=== PATIENT | male | born 1955 | race Caucasian/White ===

== ENCOUNTER 2018-02-22 17:18 | Inpatient (IN) | payer OTHER ==
[~2018-02-22] VITALS: Ht 170.2 cm; Wt 74.8 kg
[~2018-02-22 17:18] MED LIST: BACTRIM DS TAB1 EACH PO; HYDROCODONE-AP1 EAC6 PO; IBUPROFEN 800800 M1 PO
[2018-02-22 17:22] VITALS: BP 212/119
[2018-02-22 17:42] LABS: POC CA IONIZED 5.1 mg/dL (4.5-5.3); POC CREATININE 1.2 mg/dL (0.6-1.3); POC HEMOGLOBIN 12.9 g/dL (12.0-17.0); POC POTASSIUM 3.9 mmol/L (3.5-4.9)
[2018-02-22 17:47] LABS: ABSOLUTE BASOPHILS 0.2 thou/uL (0.0-0.2); ABSOLUTE EOSINOPHILS 0.4 thou/uL (0.0-0.7); ABSOLUTE LYMPHOCYTES 2.3 thou/uL (0.8-5.3); ABSOLUTE MONOCYTES 1.1 thou/uL (0.0-1.2); ABSOLUTE NEUTROPHILS 7.2 thou/uL (1.6-8.1); BASOPHILS 1.4 %; EOSINOPHILS 3.4 %; HEMATOCRIT 37.7 % (42.0-52.0); HEMOGLOBIN 11.9 gm/dL (14.0-18.0); LYMPHOCYTES 20.6 %; MCH 23.5 pg (26.0-34.0); MCHC 31.7 g/dL (28.0-37.0); MCV 74.2 fL (80.0-100.0); MONOCYTES 10.3 %; MPV 7.5 fl. (7.2-11.1); NUCLEATED RBCS 0 /100WBC; PLATELET COUNT* 337 thou/uL (150-400); POLYS 64.3 %; RBC 5.09 mil/uL (4.50-6.00); RDW-CV 18.8 % (10.5-14.5); WBC 11.2 thou/uL (4.0-11.0)
[2018-02-22 17:51] LABS: INR 1.1
[2018-02-22 18:42] LABS: CHLORIDE 103 mmol/L (98-107); SODIUM 137 mmol/L (136-145)
[2018-02-22 18:48] LABS: ANION GAP 10 mmol/L (7-16); BUN 25 mg/dL (7-18); CALCIUM 9.5 mg/dL (8.5-10.1); CO2 24 mmol/L (21-32); CREATININE 1.2 mg/dL (0.6-1.3); GLUCOSE 130 mg/dL (70-99)
[2018-02-22 18:59] LABS: ALBUMIN 3.5 g/dL (3.4-5.0); ALKALINE PHOSPHATASE 52 U/L (46-116); NT-PRO BRAIN NAT PEPTIDE 567 pg/mL (<300); SGOT 40 U/L (15-37); SGPT 27 U/L (30-65); TOTAL BILIRUBIN 0.3 mg/dL (<0.1-1.0); TOTAL PROTEIN 7.8 g/dL (6.4-8.2); TROPONIN-I LEVEL <0.06 ng/mL (<0.06)
[2018-02-22 19:13] LABS: URINE BILIRUBIN NEGATIVE (Negative); URINE BLOOD TRACE (Negative); URINE CLARITY CLEAR; URINE COLOR YELLOW; URINE GLUCOSE-RANDOM NEGATIVE (Negative); URINE KETONES NEGATIVE (Negative); URINE LEUKOCYTES NEGATIVE (Negative); URINE NITRITE NEGATIVE (Negative); URINE PROTEIN NEGATIVE (Negative); URINE SPECIFIC GRAVITY 1.025 (1.005-1.030); URINE UROBILINOGEN 0.2 E.U./dl (0.2-1.0)
[2018-02-22 19:20] LABS: AMP/METHAMP POSITIVE (Negative); BARBITURATES Negative (Negative); BENZODIAZEPINES Negative (Negative); COCAINE Negative (Negative); METHADONE Negative (Negative); OPIATES Negative (Negative); PCP Negative (Negative); THC Negative (Negative)
[2018-02-22 20:33] VITALS: BP 179/105
[2018-02-22 20:54] VITALS: BP 168/97
[2018-02-23] VITALS: BP 131/69
[2018-02-23 04:18] VITALS: BP 154/100
[2018-02-23 07:52] VITALS: BP 145/77
--- NOTE | 2018-02-23 10:33 | EKG ---
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 : 1955 Requested By: Abdulkadir Ball Order Number: [id number] MD: Loc Rubio Measurements Intervals [place] Rate: 101 P: 52 ME: 141 QRS: -18 QRSD: 94 T: 48 QT: 353 QTc: 458 Interpretive Statements Sinus tachycardia Atrial premature complexes Borderline left axis deviation RSR' in V1 or V2, probably normal variant Baseline wander in lead(s) V5 No previous ECG available for comparison Electronically Signed On 02-23-2018 10:33:24 CDT by Loc Rubio [email or web address] <ELECTRONICALLY SIGNED> By: Loc Rubio MD, FAC 02/23/18 1033 1721 1721 Loc Rubio MD, [facility] /EPI
[2018-02-23 11:47] VITALS: BP 166/98
--- NOTE | 2018-02-23 14:49 | 2DMMODE ---
[place] [address] 2 D/M-MODE ECHOCARDIOGRAM Name: ELIZABETH LIZAMA Room: [address] IN [facility]#: [id number] Admission: 02/22/18 Attend Phys: Raghavendra Hunt Discharge: Date of : 53 Date of Service: 02/23/18 1449 Report #: [id number] THIS REPORT FOR: //name// APPROVED REPORT Study performed: 02/23/2018 13:29:15 EXAM: Comprehensive 2D, Doppler, and color-flow Echocardiogram Patient Location: In-Patient Room #: [facility] Status: routine BSA: 1.86 HR: 83 bpm BP: 166/98 mmHg Rhythm: NSR Other Information Study Quality: Good Indications Hypertension/HDD 2D Dimensions LVEF(%): 58.14 (>50%) IVSd: 13.06 (7-11mm) LVOT Diam: 19.23 (18-24mm) LVDd: 47.16 mm PWd: 12.73 (7-11mm) Ascending Ao: 37.18 (22-36mm) LVDs: 32.71 (25-40mm) Aortic Root: 33.33 mm [place]'s LVEF: 58.14 % Volumes Left Atrial Volume (Systole) LA ESV Index: 24.50 mL/m2 Aortic Valve AoV Peak Baljinder.: 1.75 m/s AO Peak Gr.: 12.22 mmHg LVOT Max P.89 mmHg AO Mean Gr.: 6.20 mmHg LVOT Mean P.03 mmHg LVOT Max V: 1.31 m/s AO V2 VTI: 28.78 cm LVOT Mean V: 0.78 m/s SHAHRAM (VTI): 2.59 cm2 LVOT V1 VTI: 25.63 cm Mitral Valve E/A Ratio: 0.64 [place] [address] 2 D/M-MODE ECHOCARDIOGRAM Name: ELIZABETH LIZAMA Room: [address] IN .R.#: [id number] Admission: 02/22/18 Attend Phys: Raghavendra Hunt Discharge: Date of : 53 Date of Service: 02/23/18 1449 Report #: [id number] MV Decel. Time: 234.13 ms MV E Max Baljinder.: 0.57 m/s MV PHT: 67.90 ms MVA (PHT): 3.24 cm2 TDI E/Lateral E': 5.70 E/Medial E': 6.33 Medial E' Baljinder.: 0.09 m/s Lateral E' Baljinder.: 0.10 m/s Pulmonary Valve PV Peak Baljinder.: 0.90 m/s PV Peak Gr.: 3.25 mmHg Left Ventricle The left ventricle is normal size. There is normal LV segmental wall motion. Mild concentric left ventricular hypertrophy. Left ventricular systolic function is normal. The left ventricular ejection fraction is within the normal range. LVEF is 50-55%. Grade I - abnormal relaxation pattern. Right Ventricle The right ventricle is normal size. The right ventricular systolic function is normal. Atria The left atrium size is normal. The right atrium size is normal. Aortic Valve The Aortic valve is sclerotic. No aortic regurgitation is present. There is no aortic valvular stenosis. Mitral Valve The mitral valve is normal in structure. There is no mitral valve regurgitation noted. No evidence of mitral valve stenosis. Tricuspid Valve The tricuspid valve is normal in structure. Trace tricuspid regurgitation. Pulmonic Valve Pulmonic valve is not well visualized. There is no pulmonic valvular regurgitation. Great Vessels Aortic root is mildly dilated. IVC is normal in size [place] [address] 2 D/M-MODE ECHOCARDIOGRAM Name: ELIZABETH LIZAMA Room: [address] IN [facility]#: [id number] Admission: 02/22/18 Attend Phys: Raghavendra Hunt Discharge: Date of : 53 Date of Service: 02/23/18 1449 Report #: [id number] with >50% inspiration Pericardium There is no pericardial effusion. <Conclusion> Normal echocardiogram. Mild concentric left ventricular hypertrophy. LVEF is 50-55%. The Aortic valve is sclerotic. <ELECTRONICALLY SIGNED> By: Loc Rubio MD, [facility] 02/23/18 1449 48 48 Loc Rubio MD, FACC /INF
[2018-02-23 16:00] VITALS: BP 161/54
[2018-02-23 20:00] VITALS: BP 155/94
[2018-02-24] VITALS (7 sets, daily range): BP systolic 150–194; BP diastolic 88–110
[2018-02-24 10:22] LABS: CHOLESTEROL 155 mg/dL (<200); HDL CHOLESTEROL 57 mg/dL (>40); LDL CHOLESTEROL 82 mg/dL (<100); SERUM ASSESSMENT Clear; TC:HDL 2.7 Ratio (Not establshd); TRIGLYCERIDE 80 mg/dL (<150); VLDL 16 mg/dL (<40)
[2018-02-24] MEDS ORDERED: ASPIR 8181 MG PO (14:33)
[2018-02-24] MEDS ORDERED: LIPITOR 20 MG T20 M1 PO (14:35)
[2018-02-24] MEDS ORDERED: PRENATA CHEWAB1 EACH PO (14:36)
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
--- NOTE | 2018-03-04 08:15 | EEG ---
[address] [address] EEG STUDY REPORT Name: ELIZABETH LIZAMA Room: [address] IN M.R.#: [id number] Admission: 02/22/18 Attend Phys: Leticia Quiroz Discharge: 02/24/18 Date of : 53 Report #: [id number] THIS REPORT FOR: //name// CC: OK physician/PCP Raghavendra Hunt DATE OF SERVICE: 02/23/2018 This patient is being evaluated for altered mental status. EEG was done by placing the electrode by standard 10/20 system of electrode placement. Both referential and sequential montages were used for recording. Background activity in this patient's EEG goes up to about 9 Hz and 30 microvolts. It is a symmetrical activity. The patient went to sleep, that is associated with bilaterally slowing and sleep spindles. Photic stimulation is unremarkable. Throughout the record, no active epileptiform activity was noticed. IMPRESSION: This patient's EEG is intermixed with moderate amount of slowing on both sides. That is a nonspecific abnormality, which can occur with encephalopathy, effect of psychotropic medication, dementia, etc. Clinical correlation is recommended. <ELECTRONICALLY SIGNED> By: Carloz Baca MD 03/04/18 0815 1618 1734Psharif Baca MD /nt
== END 2018-02-24 16:00 | disposition home or self-care (01) | DRG 947 ==
LOC: M.ERS 17:18 → M.2W 19:20 → M.TBA-ER 19:20 → M.2W 20:42
PROVIDERS: Nurse Practitioner Psychiatric/Mental Health; Psychiatry & Neurology Neuromuscular Medicine; ADMIT Internal Medicine
DX: R41.82 Altered mental status, unspecified (principal); G93.40 Encephalopathy, unspecified; E86.0 Dehydration; I10 Essential (primary) hypertension; M19.90 Unspecified osteoarthritis, unspecified site; F17.210 Nicotine dependence, cigarettes, uncomplicated; T67.5XXA Heat exhaustion, unspecified, initial encounter; X58.XXXA Exposure to other specified factors, initial encounter; F15.10 Other stimulant abuse, uncomplicated; F10.10 Alcohol abuse, uncomplicated; Y90.9 Presence of alcohol in blood, level not specified; Z88.0 Allergy status to penicillin; Z88.8 Allergy status to other drugs, medicaments and biological substances; Z79.82 Long term (current) use of aspirin; Z79.899 Other long term (current) drug therapy; Z87.820 Personal history of traumatic brain injury; Y93.89 Activity, other specified; Y92.89 Other specified places as the place of occurrence of the external cause; Y99.8 Other external cause status

== ENCOUNTER 2018-03-21 20:18 | Emergency (ER) | payer OTHER ==
[~2018-03-21 20:18] MED LIST changes: +ASPIR 8181 MG PO; +LIPITOR 20 MG T20 M1 PO; +PRENATA CHEWAB1 EACH PO
== END 2018-03-21 22:15 ==
LOC: M.ERS 20:18
DX: Z02.89 Encounter for other administrative examinations (principal)

== ENCOUNTER 2018-11-21 10:10 | Inpatient (IN) | payer OTHER ==
[2018-11-21] VITALS (20 sets, daily range): BP systolic 118–194; BP diastolic 63–130
[~2018-11-21] VITALS: Ht 170.2 cm; Wt 72.1 kg
[2018-11-21 10:34] LABS: ABSOLUTE BASOPHILS 0.1 thou/uL (0.0-0.2); ABSOLUTE EOSINOPHILS 0.8 thou/uL (0.0-0.7); ABSOLUTE LYMPHOCYTES 1.9 thou/uL (0.8-5.3); ABSOLUTE MONOCYTES 1.4 thou/uL (0.0-1.2); ABSOLUTE NEUTROPHILS 13.6 thou/uL (1.6-8.1); BASOPHILS 0.7 %; EOSINOPHILS 4.4 %; HEMATOCRIT 46.3 % (42.0-52.0); HEMOGLOBIN 14.7 gm/dL (14.0-18.0); LYMPHOCYTES 10.6 %; MCH 23.8 pg (26.0-34.0); MCHC 31.7 g/dL (28.0-37.0); MONOCYTES 7.8 %; MPV 6.9 fl. (7.2-11.1); NUCLEATED RBCS 0 /100WBC; PLATELET COUNT* 495 thou/uL (150-400); POLYS 76.5 %; RBC 6.17 mil/uL (4.50-6.00); WBC 17.8 thou/uL (4.0-11.0)
[2018-11-21 10:52] LABS: APTT 32.8 Seconds (25.0-31.3); PROTIME 10.6 Seconds (9.20-11.50)
[2018-11-21 11:08] LABS: ALBUMIN 3.6 g/dL (3.4-5.0); ALKALINE PHOSPHATASE 96 U/L (46-116); ANION GAP 8 mmol/L (7-16); BUN 19 mg/dL (7-18); CHLORIDE 101 mmol/L (98-107); CO2 30 mmol/L (21-32); CREATININE 1.3 mg/dL (0.6-1.3); GLUCOSE 137 mg/dL (70-99); POTASSIUM 4.5 mmol/L (3.5-5.1); SGOT 23 U/L (15-37); SGPT 30 U/L (30-65); SODIUM 139 mmol/L (136-145); TOTAL BILIRUBIN 0.3 mg/dL (<0.1-1.0); TOTAL PROTEIN 8.8 g/dL (6.4-8.2); TROPONIN-I LEVEL <0.06 ng/mL (<0.06)
[2018-11-21 14:43] LABS: POC CA IONIZED 4.9 mg/dL (4.5-5.3); POC CREATININE 1.1 mg/dL (0.6-1.3); POC HEMOGLOBIN 16.3 g/dL (12.0-17.0); POC POTASSIUM 4.5 mmol/L (3.5-4.9)
--- NOTE | 2018-11-21 15:13 | EKG ---
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1955 Requested By: Addison Snyder Order Number: [id number] MD: Loc Rubio Measurements Intervals [place] Rate: 103 P: 64 MD: 141 QRS: -28 QRSD: 97 T: 63 QT: 352 QTc: 461 Interpretive Statements Sinus tachycardia Probable left atrial enlargement Borderline left axis deviation RSR' in V1 or V2, probably normal variant Compared to ECG 02/22/2018 17:21:25 Atrial premature complex(es) no longer present Electronically Signed On 11-21-2018 15:13:23 CDT by Loc Rubio [email or web address] <ELECTRONICALLY SIGNED> By: Loc Rubio MD, FAC 11/21/18 1513 1040 1040 Loc Rubio MD, [facility] /EPI
--- NOTE | 2018-11-21 17:24 | 2DMMODE ---
[place] [address] 2 D/M-MODE ECHOCARDIOGRAM Name: ELIZABETH LIZAMA Room: [address] IN [facility]#: [id number] Admission: 11/21/18 Attend Phys: Raghavendra Hunt Discharge: Date of : 53 Date of Service: 11/21/18 1724 Report #: [id number] THIS REPORT FOR: //name// APPROVED REPORT Study performed: 11/21/2018 16:09:35 EXAM: Comprehensive 2D, Doppler, and color-flow Echocardiogram Patient Location: In-Patient Room #: [facility] Status: routine BSA: 1.86 HR: 103 bpm BP: 168/117 mmHg Rhythm: NSR Other Information Study Quality: Good Indications Hypertension/HDD Echo Enhancing Agent Indication: Rule out Shunt Agent(s) / Amount(s) Used: Agitated Saline 10 cc 2D Dimensions IVSd: 11.01 (7-11mm) LVOT Diam: 20.05 (18-24mm) LVDd: 47.10 mm PWd: 8.86 (7-11mm) Ascending Ao: 28.18 (22-36mm) LVDs: 26.59 (25-40mm) Aortic Root: 31.15 mm Volumes Left Atrial Volume (Systole) LA ESV Index: 21.20 mL/m2 Aortic Valve AoV Peak Baljinder.: 1.65 m/s AO Peak Gr.: 10.89 mmHg LVOT Max P.29 mmHg AO Mean Gr.: 6.27 mmHg LVOT Mean P.86 mmHg LVOT Max V: 1.25 m/s AO V2 VTI: 20.65 cm LVOT Mean V: 0.76 m/s SHAHRAM (VTI): 2.42 cm2 LVOT V1 VTI: 15.84 [place] [address] 2 D/M-MODE ECHOCARDIOGRAM Name: ELIZABETH LIZAMA Room: [address] IN ..#: [id number] Admission: 11/21/18 Attend Phys: Raghavendra Hunt Discharge: Date of : 53 Date of Service: 11/21/18 1724 Report #: [id number] Mitral Valve E/A Ratio: 0.66 MV Decel. Time: 257.76 ms MV E Max Baljinder.: 0.54 m/s MV PHT: 74.75 ms MVA (PHT): 2.94 cm2 TDI E/Lateral E': 6.00 E/Medial E': 5.40 Medial E' Baljinder.: 0.10 m/s Lateral E' Baljinder.: 0.09 m/s Pulmonary Valve PV Peak Baljinder.: 1.15 m/s PV Peak Gr.: 5.31 mmHg Left Ventricle The left ventricle is normal size. The basal inferior wall appears akinetic. There is normal left ventricular wall thickness. Left ventricular systolic function preserved. LVEF is 55-60%. Grade I - abnormal relaxation pattern. Right Ventricle The right ventricle is normal size. The right ventricular systolic function is normal. Atria The left atrium size is normal. Interatrial septum is intact without evidence of ASD or PFO. The right atrium size is normal. Aortic Valve The aortic valve is normal in structure. No aortic regurgitation is present. There is no aortic valvular stenosis. Mitral Valve The mitral valve is normal in structure. There is no mitral valve regurgitation noted. No evidence of mitral valve stenosis. Tricuspid Valve The tricuspid valve is normal in structure. There is no tricuspid valve regurgitation noted. Pulmonic Valve The pulmonary valve is normal in structure. There is no pulmonic valvular regurgitation[place] [address] 2 D/M-MODE ECHOCARDIOGRAM Name: ELIZABETH LIZAMA Room: [address]#: [id number] Admission: 11/21/18 Attend Phys: Raghavendra Hunt Discharge: Date of : 53 Date of Service: 11/21/18 1724 Report #: [id number] The aortic root is normal in size. IVC is normal in size and collapses >50% with inspiration. Pericardium There is no pericardial effusion. <Conclusion> The left ventricle is normal size. There is normal left ventricular wall thickness. Left ventricular systolic function preserved. LVEF is 55-60%. Grade I - abnormal relaxation pattern. The basal inferior wall appears akinetic. Interatrial septum is intact without evidence of ASD or PFO. IVC is normal in size and collapses >50% with inspiration. Wall motion abnormalities noted suggesting possible inferior infarct. <ELECTRONICALLY SIGNED> By: David Sorto MD, FACC 11/21/181723 23 23 David Sorto MD, FACC /INF
[2018-11-21 19:45] LABS: URINE BILIRUBIN NEGATIVE (Negative); URINE BLOOD NEGATIVE (Negative); URINE CLARITY CLEAR; URINE COLOR YELLOW; URINE GLUCOSE-RANDOM NEGATIVE (Negative); URINE KETONES NEGATIVE (Negative); URINE LEUKOCYTES NEGATIVE (Negative); URINE NITRITE NEGATIVE (Negative); URINE PROTEIN 1+ (Negative); URINE UROBILINOGEN 0.2 E.U./dl (0.2-1.0)
[2018-11-21 19:53] LABS: AMP/METHAMP POSITIVE (Negative); BARBITURATES Negative (Negative); BENZODIAZEPINES Negative (Negative); COCAINE Negative (Negative); METHADONE Negative (Negative); OPIATES Negative (Negative); PCP Negative (Negative); THC Negative (Negative)
[2018-11-22] VITALS (13 sets, daily range): BP systolic 109–146; BP diastolic 66–91
[2018-11-23] VITALS (7 sets, daily range): BP systolic 127–154; BP diastolic 83–101
[2018-11-23] MEDS ORDERED: LIPITOR 20 MG T20 M1 PO (14:14)
[2018-11-23] MEDS ORDERED: LISINOPRIL20 MG PO (14:15)
[2018-11-23] MEDS ORDERED: ASPIR 8181 MG PO (14:16)
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
== END 2018-11-23 17:40 | disposition home or self-care (01) | DRG 78 ==
LOC: M.ERS 10:10 → M.TBA-ER 11:01 → M.ICU 11:01 → M.3W 11-22 19:05
PROVIDERS: Emergency Medicine Emergency Medical Services; ADMIT Internal Medicine
DX: I67.4 Hypertensive encephalopathy (principal); I16.1 Hypertensive emergency; I10 Essential (primary) hypertension; F17.210 Nicotine dependence, cigarettes, uncomplicated; T43.625A Adverse effect of amphetamines, initial encounter; Y92.89 Other specified places as the place of occurrence of the external cause; Z86.73 Personal history of transient ischemic attack (TIA), and cerebral infarction without residual deficits; Z88.0 Allergy status to penicillin; Z88.8 Allergy status to other drugs, medicaments and biological substances; Z79.82 Long term (current) use of aspirin; Z79.899 Other long term (current) drug therapy; Z28.21 Immunization not carried out because of patient refusal

== ENCOUNTER 2018-12-18 01:46 | Emergency (ER) | payer OTHER ==
[~2018-12-18] VITALS: Ht 177.8 cm; Wt 73.2 kg
[~2018-12-18 01:46] MED LIST changes: +LISINOPRIL20 MG PO
[2018-12-18 02:04] LABS: HEMATOCRIT 47.8 % (42.0-52.0); HEMOGLOBIN 15.3 gm/dL (14.0-18.0); MCH 24.2 pg (26.0-34.0); MCHC 32.1 g/dL (28.0-37.0); MCV 75.3 fL (80.0-100.0); MPV 7.4 fl. (7.2-11.1); NUCLEATED RBCS 0 /100WBC; PLATELET COUNT* 405 thou/uL (150-400); RBC 6.35 mil/uL (4.50-6.00); RDW-CV 17.8 % (10.5-14.5); WBC 19.1 thou/uL (4.0-11.0)
[2018-12-18 02:17] LABS: BE -3.8 mmol/L (-2 to +3); PCO2 38.2 mmHg (35.0-45.0); PO2 98.8 mmHg (75.0-100.0)
[2018-12-18 02:19] LABS: INR 1.1
[2018-12-18 02:23] LABS: ANION GAP 12 mmol/L (7-16); BUN 18 mg/dL (7-18); CALCIUM 10.5 mg/dL (8.5-10.1); CHLORIDE 97 mmol/L (98-107); CO2 27 mmol/L (21-32); CREATININE 1.5 mg/dL (0.6-1.3); GLUCOSE 196 mg/dL (70-99); SODIUM 136 mmol/L (136-145); TROPONIN-I LEVEL <0.06 ng/mL (<0.06)
[2018-12-18 02:24] LABS: ALBUMIN 4.2 g/dL (3.4-5.0); ALKALINE PHOSPHATASE 94 U/L (46-116); NT-PRO BRAIN NAT PEPTIDE 334 pg/mL (<300); SGOT 19 U/L (15-37); SGPT 24 U/L (30-65); TOTAL BILIRUBIN 0.4 mg/dL (<0.1-1.0); TOTAL PROTEIN 9.5 g/dL (6.4-8.2)
[2018-12-18 03:10] LABS: INFLUENZA A ANTIGEN None Detected (None Detect); INFLUENZA B ANTIGEN None Detected (None Detect)
[2018-12-18 03:14] LABS: ABSOLUTE BASOPHILS 0.2 thou/uL (0.0-0.2); ABSOLUTE MONOCYTES 1.1 thou/uL (0.0-1.2); ABSOLUTE NEUTROPHILS 15.9 thou/uL (1.6-8.1); HYPOCHROMASIA 1+; PLATELET ESTIMATE INCREASED; TOXIC GRANULATION 1+
[2018-12-18 03:15] LABS: ANISOCYTOSIS 1+
[2018-12-18 04:26] LABS: URINE BILIRUBIN NEGATIVE (Negative); URINE BLOOD 1+ (Negative); URINE CLARITY CLEAR; URINE COLOR YELLOW; URINE GLUCOSE-RANDOM TRACE (Negative); URINE KETONES NEGATIVE (Negative); URINE LEUKOCYTES-REFLEX NEGATIVE (Negative); URINE NITRITE-REFLEX NEGATIVE (Negative); URINE PROTEIN 3+ (Negative); URINE SPECIFIC GRAVITY 1.015 (1.005-1.030); URINE UROBILINOGEN 0.2 E.U./dl (0.2-1.0)
[2018-12-18 04:34] LABS: AMP/METHAMP Negative (Negative); BARBITURATES Negative (Negative); BENZODIAZEPINES Negative (Negative); COCAINE Negative (Negative); METHADONE Negative (Negative); OPIATES Negative (Negative); PCP Negative (Negative); THC Negative (Negative)
[2018-12-18] MEDS ORDERED: ALBUTEROL2.5 MG/31 INH (04:47)
[2018-12-18] MEDS ORDERED: PREDNISONE50 MG PO (04:47)
[2018-12-18] MEDS ORDERED: PROAIR HFA8.5 GM INH (04:47)
[2018-12-18 04:53] LABS: BACTERIA-REFLEX >30 Many /HPF (None Seen); CRYSTALS None Seen /LPF (None Seen); HYALINE CASTS 0-3 Few /LPF (None Seen); MUCUS 0-3 Light strn/LPF (None Seen); SQUAMOUS 0-3 Few /LPF (0-3); URINE RBC 3-10 Few /HPF (0-2)
[2018-12-18 05:00] VITALS: BP 150/88
[2018-12-18] MEDS ORDERED: CIPROFLOXACIN500 M1 PO (05:05)
--- NOTE | 2018-12-18 13:53 | EKG ---
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1955 Requested By: Adore Manuel Order Number: [id number] MD: Loc Rubio Measurements Intervals [place] Rate: 113 P: 74 TX: 185 QRS: -44 QRSD: 90 T: 69 QT: 311 QTc: 427 Interpretive Statements Sinus tachycardia Biatrial enlargement Left anterior fascicular block Abnormal R-wave progression, late transition Compared to ECG 11/21/2018 10:40:23 no change Electronically Signed On 12-18-2018 13:53:00 CDT by Loc uRbio [email or web address] <ELECTRONICALLY SIGNED> By: Loc Rubio MD, [facility] 12/18/18 1353 0151 0151 Loc Rubio MD, [facility] /EPI
== END 2018-12-18 05:00 | disposition home or self-care (01) ==
LOC: M.ERS 01:46
PROVIDERS: Emergency Medicine
DX: J20.9 Acute bronchitis, unspecified (principal); I10 Essential (primary) hypertension; F17.210 Nicotine dependence, cigarettes, uncomplicated; Z86.73 Personal history of transient ischemic attack (TIA), and cerebral infarction without residual deficits; Z88.0 Allergy status to penicillin; Z88.6 Allergy status to analgesic agent; Z79.899 Other long term (current) drug therapy